=== PATIENT | female | born 1995 | race Two or more races ===

== ENCOUNTER 2017-11-21 19:38 | Emergency (ER) | payer MEDICAID ==
[~2017-11-21] VITALS: Ht 165.1 cm; Wt 68.2 kg
[2017-11-21 20:09] LABS: APPEARANCE,URINE TURBID (CLEAR); BILIRUBIN,URINE NEGATIVE (NEGATIVE); GLUCOSE, URINE (UA) NEGATIVE (NEGATIVE); KETONES,URINE NEGATIVE (NEGATIVE); LEUKOCYTE ESTERASE ,URINE NEGATIVE (NEGATIVE); NITRATE,URINE NEGATIVE (NEGATIVE); OCCULT BLOOD,URINE LARGE (NEGATIVE); PH,URINE 7.5 (5.0-8.0); PROTEIN,URINE NEGATIVE (NEGATIVE); UROBILINOGEN,URINE 0.2 mg/dL (<=1.0)
[2017-11-21 20:32] LABS: AMORPHOUS SEDIMENT,UR Many /LPF (None Seen); BACTERIA,URINE Few /HPF (None Seen); SQUAMOUS EPITHELIAL CELL,UR Few /LPF (None Seen); WBC,URINE 0-2 /HPF (0-5)
[2017-11-21 22:05] VITALS: BP 118/7
== END 2017-11-21 22:25 | disposition home or self-care (01) ==
LOC: EMS 19:40
DX: N94.6 Dysmenorrhea, unspecified (principal); F12.90 Cannabis use, unspecified, uncomplicated
CPT/HCPCS: 76856; 99285

== ENCOUNTER 2021-09-02 08:47 | Emergency (ER) | payer MEDICAID ==
[~2021-09-02] VITALS: Ht 162.6 cm; Wt 80.0 kg
[2021-09-02 09:02] VITALS: BP 119/67
== END 2021-09-02 10:28 | disposition home or self-care (01) ==
LOC: EMS 08:47
DX: L98.8 Other specified disorders of the skin and subcutaneous tissue (principal); F12.90 Cannabis use, unspecified, uncomplicated
CPT/HCPCS: 99282; Z7502